=== PATIENT | female | born 1995 | race Caucasian/White ===

== ENCOUNTER 2024-04-07 14:14 | Emergency (ER) | payer OTHER ==
[2024-04-07 14:38] VITALS: BP 124/85; PULSE 107; RESP 18; TEMP 98.7; BMI 24.8
[2024-04-07] MEDS ORDERED: ACETAMINOPHEN 500 MG TABLET (FP) ONE (15:35)
[2024-04-07] MEDS: ACETAMINOPHEN 500 MG TABLET (FP) PO ONE (15:36)
[2024-04-07] MEDS: ONDANSETRON *ODT* 4 MG TABLET SL ONE (16:47)
== END 2024-04-07 16:53 | disposition home or self-care (01) ==
LOC: FER 14:14
DX: S02.2XXA Fracture of nasal bones, initial encounter for closed fracture (principal); M79.645 Pain in left finger(s); W01.198A Fall on same level from slipping, tripping and stumbling with subsequent striking against other object, initial encounter
CPT/HCPCS: 70486-TC; 73140-TC-LT-FY; 99284-25; Q0162